=== PATIENT | male | born 1985 ===

== ENCOUNTER 2024-12-31 08:52 | Day surgery (SDC) | payer SELFPAY ==
[~2024-12-31 08:52] MED LIST: Albuterol 0.083% 2.5 MG/3 ML Neb Soln NEB PRN; Bupivacaine 0.5% 30 ML SDV ONE; HYDROmorphone 1 MG/ML Syringe IVPUSH PRN; Lidocaine 4% 5 ML Amp ONE; Metoclopramide 10 MG/2 ML SDV IVPUSH PRN; Morphine 2 MG/ML SYRINGE IVPUSH PRN; Naloxone 0.4 MG/ML SDV IVPUSH PRN; Ondansetron 4 MG/2 ML SDV IVPUSH PRN; Phenylephrine HCl In 0.9% NaCl 1 MG/10 ML Syringe IVPUSH PRN; ceFAZolin 2 GM in Sodium Chloride 0.9% 50 ML IV ONE; fentaNYL 50 MCG/ML SDV IVPUSH PRN
[2024-12-31] MEDS ORDERED: fentaNYL 100 MCG/2 ML SDV ONE (09:10)
[2024-12-31] MEDS ORDERED: Propofol 200 MG/20 ML SDV ONE ×2 (09:10→10:49)
[2024-12-31] MEDS ORDERED: Midazolam 1 MG/ML 2 ML SDV ONE (09:10)
[2024-12-31] MEDS ORDERED: Dexamethasone 4 MG/ML 5 ML MDV ONE (09:11)
[2024-12-31] MEDS ORDERED: Lidocaine 1% 5 ML VIAL ONE (09:11)
[2024-12-31] MEDS ORDERED: Ondansetron 4 MG/2 ML SDV ONE (09:11)
[2024-12-31] MEDS: Lactated Ringers 1,000 ML IV SCH (09:20)
[2024-12-31] MEDS ORDERED: Bupivacaine 0.5%/EPINEPHrine 1:200,000 30 ML SDV ONE (09:33)
[2024-12-31] MEDS ORDERED: ceFAZolin 1 GM Vial ONE (10:48)
[2024-12-31] MEDS ORDERED: ceFAZolin 2 GM Vial ONE (10:48)
[2024-12-31] MEDS ORDERED: HYDROmorphone 1 MG/ML Syringe ONE (11:11)
[2024-12-31] MEDS ORDERED: Ketorolac 30 MG/ML SDV ONE (11:50)
[2024-12-31 13:49] VITALS: BP 118/77; PULSE 70
== END 2024-12-31 14:20 | disposition home or self-care (01) ==
LOC: MW.SDS 08:52
PROVIDERS: ATTEND Orthopaedic Surgery
DX: S82.62XA Displaced fracture of lateral malleolus of left fibula, initial encounter for closed fracture (principal); S93.422A Sprain of deltoid ligament of left ankle, initial encounter; X58.XXXA Exposure to other specified factors, initial encounter
CPT/HCPCS: 27792; C1713; J0665; J0690; J1100; J1171; J1885; J2003; J2250; J2405; J2704; J3010; J7120; 01480; 64450; J3490